=== PATIENT | female | born 1970 | race Caucasian/White ===

== ENCOUNTER 2016-12-28 06:36 | Day surgery (SDC) | payer BC ==
[~2016-12-28] VITALS: Ht 167.6 cm; Wt 75.7 kg
[2016-12-28] MEDS ORDERED: PROPOFOL 200MG/ 20ML VIAL (DIPRIVAN) IV ONE (06:37)
[2016-12-28] MEDS ORDERED: METOCLOPRAMIDE HCL 10 MG/2 ML VIAL IVP ONE (06:37)
[2016-12-28] MEDS ORDERED: ONDANSETRON HCL 4 MG/2 ML VIAL IVP ONE (06:37)
[2016-12-28] MEDS ORDERED: KETOROLAC TROMETHAMINE 30 MG VIAL IVP ONE (06:37)
[2016-12-28] MEDS ORDERED: fentaNYL CITRATE/PF 100 MCG/2 ML AMP IVP ONE (06:37)
[2016-12-28] MEDS ORDERED: SEVOFLURANE 15 MIN GAS INH ONE (06:37)
[2016-12-28] MEDS ORDERED: MIDAZOLAM HCL 5 MG/ML VIAL (VERSED) IV ONE (06:37)
[2016-12-28] MEDS ORDERED: LR 1,000 ML IV.SOLN IV ONE (06:37)
[2016-12-28 07:32] LABS: HCG,QUAL RESULT NEGATIVE (NEGATIVE)
[2016-12-28] MEDS ORDERED: LR 1,000 ML IV SCH (09:43)
[2016-12-28] MEDS ORDERED: ONDANSETRON HCL 4 MG/2 ML VIAL IVP PRN ×2 (09:45→10:00)
[2016-12-28] MEDS ORDERED: MORPHINE 4 MG/ML INJ. SYRINGE IVP PRN ×3 (09:45)
[2016-12-28] MEDS ORDERED: OXYCODONE/ACETAMINOPHEN 5-325 TABLET PO PRN ×2 (10:00)
[2016-12-28] MEDS ORDERED: IBUPROFEN 800 MG TABLET PO PRN (10:00)
[2016-12-28] MEDS ORDERED: ONDANSETRON HCL 4 MG/2 ML VIAL ONE (10:37)
[2016-12-28 11:30] VITALS: BP_SYST 106
== END 2016-12-28 13:00 | disposition home or self-care (01) ==
LOC: SDS 06:36 → SMU 06:37 → SDS 13:00
PROVIDERS: ATTEND Obstetrics & Gynecology
DX: N84.0 Polyp of corpus uteri (principal); D64.9 Anemia, unspecified; Z98.890 Other specified postprocedural states; D25.9 Leiomyoma of uterus, unspecified
CPT/HCPCS: 36415; 58563; 84703; 86886; 86900; 86901; 88305; J1885; J2250; J2405; J2704; J2765; J3010; J7120